=== PATIENT | female | born 1950 | race Caucasian/White ===

== ENCOUNTER 2017-04-14 06:41 | Day surgery (SDC) | payer MEDICARE, BC ==
[2017-04-14] MEDS ORDERED: Sodium Chloride 0.9% 10 ML Syringe FLUSH PRN (06:45)
[2017-04-14] MEDS ORDERED: Lactated Ringers 1,000 ML IV SCH (06:45)
[2017-04-14] MEDS ORDERED: fentaNYL 100 MCG/2 ML SDV IV ONE (08:00)
[2017-04-14] MEDS ORDERED: Midazolam 1 MG/ML 2 ML SDV IV ONE (08:00)
[2017-04-14] MEDS ORDERED: Propofol 200 MG/20 ML SDV IV ONE (08:00)
[2017-04-14] MEDS ORDERED: Lidocaine 2% 100 MG/5 ML Syringe IVPUSH ONE (08:00)
--- NOTE | 2017-04-14 08:20 | PCM.OPNOTE ---
- General Post-Op/Procedure Note Date of Surgery/Procedure: 04/14/17 Operative Procedure(s): egd with bx Findings: gastritis gastric polyp esophagitis Pre Op Diagnosis: sx gerd Post-Op Diagnosis: gastritis. gastric polyp. esophagitis Anesthesia Technique: JEAN MARIE Primary Surgeon: Arnaud Faulkner Anesthesia Provider: Nohemi Galan Pathology: stomach and distal esophagus Complications: None Condition: Good Free Text/Narrative:: see dictation
[2017-04-14 08:57] VITALS: BP 105/76
--- NOTE | 2017-04-14 09:17 | OR ---
DATE OF OPERATION: 04/14/2017 SURGEON: Arnaud Faulkner MD PROCEDURE PERFORMED: EGD with cold forceps biopsies. PREOPERATIVE DIAGNOSIS: Symptomatic reflux disease. POSTOPERATIVE DIAGNOSES: Gastroesophageal reflux disease, gastritis, and gastric polyp. INDICATIONS FOR PROCEDURE: Ms. Echeverria is a 66-year-old white female who presents with a history of symptomatic reflux disease. She was offered and accepted an EGD. DESCRIPTION OF PROCEDURE: After an excellent IV sedation was administered, the bite block was inserted. The flexible endoscope was passed without difficulty down the patient's esophagus and into her stomach. The stomach was insufflated. The scope was passed through the pylorus to the second portion of the duodenum and slowly withdrawn. The following findings were noted. Duodenum was unremarkable. Stomach demonstrates diffuse gastritis. Fundic gland polyp was noted. Random biopsies were taken as well as a biopsy of the gastric polyp. GE junction demonstrates what appears to be esophagitis and biopsies were taken. The remainder of the esophageal exam was unremarkable. The stomach was deflated and scope was removed. The patient tolerated the procedure well and was taken to Recovery. /[id number] /MODL
== END 2017-04-14 09:23 | disposition home or self-care (01) ==
LOC: FB.SDS 06:41
PROVIDERS: ATTEND Surgery
DX: K29.50 Unspecified chronic gastritis without bleeding (principal); D13.1 Benign neoplasm of stomach; K22.8 Other specified diseases of esophagus; E78.5 Hyperlipidemia, unspecified; K21.9 Gastro-esophageal reflux disease without esophagitis; Z90.710 Acquired absence of both cervix and uterus; Z98.890 Other specified postprocedural states; Z79.899 Other long term (current) drug therapy
CPT/HCPCS: 00740; 43239; 88305; 88313; 88342; J2250; J2704; J3010; J7120

== ENCOUNTER 2022-01-14 07:41 | Day surgery (SDC) | payer BC, MEDICARE ==
[2022-01-14] MEDS ORDERED: Propofol 200 MG/20 ML SDV IV ONE (07:42)
[2022-01-14] MEDS ORDERED: Lidocaine 1% PF 2 ML SDV INJECT ONE (07:42)
[2022-01-14] MEDS ORDERED: Lactated Ringers 1,000 ML IV SCH (07:45)
[2022-01-14] MEDS ORDERED: Sodium Chloride 0.9% 10 ML Syringe FLUSH PRN (07:45)
[2022-01-14 10:01] VITALS: BP 144/84; PULSE 77
== END 2022-01-14 11:05 | disposition home or self-care (01) ==
LOC: FB.SDS 07:41
PROVIDERS: ATTEND Surgery
DX: K63.5 Polyp of colon (principal); K21.9 Gastro-esophageal reflux disease without esophagitis; E78.5 Hyperlipidemia, unspecified; Z79.899 Other long term (current) drug therapy; Z91.018 Allergy to other foods; Z98.890 Other specified postprocedural states
CPT/HCPCS: 00812; 45384; 88305; J2704; J7120